=== PATIENT | female | born 1995 | race Caucasian/White ===

== ENCOUNTER 2022-07-21 22:31 | Emergency (ER) | payer BC, OTHER, SELFPAY ==
[2022-07-21 22:35] VITALS: BP 116/70; PULSE 86; RESP 18; TEMP 37; O2SAT 96; BMI 27.5
--- NOTE | 2022-07-21 23:50 | ED_ITS ---
HPI - General Chief complaint: Vaginal Bleeding Time Seen by Provider: 07/21/22 23:40 Source: patient Mode of arrival: walk-in Limitations: no limitations History of Present Illness HPI Narrative: [id number]. her daughter is 8 years old. Recent tubal 04/2022 required removal of her tube. She is now 5 weeks . States she started spotting yesterday with some cramping. No urinary symptoms or nausea or fever. MD Complaint: Reports vaginal bleeding Related Data Allergies Allergy/AdvReac Type Severity Reaction Status Date / Time No Known Drug Allergies Allergy Verified 07/21/22 22:45 Review of Systems ROS Status of ROS 10 or more systems reviewed and unremarkable except as noted in history and below Exam Constitutional Vital Signs - 24 hr 07/21/22 22:35 Temperature 98.6 F Pulse Rate [Monitor] 86 Respiratory Rate 18 Blood Pressure [Right Arm] 116/70 Pulse Oximetry 96 Oxygen Delivery Method Room Air HENMT Common normals: normocephalic and head/scalp atraumatic Eye Common normals: PERRL, EOMs intact bilaterally and conjunctivae normal Neck & C-Spine Common normals: full ROM and supple Chest Common normals: inspection of chest normal Respiratory Common normals: normal respiratory effort and clear to auscultation bilaterally Cardio Common normals: regular rate, regular rhythm, S1 normal heart sound and S2 normal heart sound GI Common normals: Normal to inspection, nondistended, normoactive bowel sounds present, soft to palpation and non-tender Common normals: external appearance normal, appearance of the vagina normal and appearance of the cervix normal Bimanual exam- vagina & uterus: cervical tenderness Bimanual exam- adnexa, other: adnexal tenderness Extremity Common normals: normal to inspection, full ROM and no joint enlargement Neuro Common normals: oriented x3, CN's II-XII intact bilaterally, moves all extremities and no focal motor deficits Psych Appearance: grossly normal Course Vital Signs Vital signs: Vital Signs Temperature 98.6 F 07/21/22 22:35 Pulse Rate 86 07/21/22 22:35 Respiratory Rate 18 07/21/22 22:35 Blood Pressure 116/70 07/21/22 22:35 Pulse Oximetry 96 07/21/22 22:35 Oxygen Delivery Method Room Air 07/21/22 22:35 Temperature 98.6 F 07/21/22 22:35 Pulse Rate 86 07/21/22 22:35 Respiratory Rate 18 07/21/22 22:35 Blood Pressure 116/70 07/21/22 22:35 Pulse Oximetry 96 07/21/22 22:35 Oxygen Delivery Method Room Air 07/21/22 22:35 MDM - OB/Uterine Contractions MDM Narrative Medical decision making narrative: B1L4Au3. Tubal earlier this year requiring tubal removal on the right. Now 5 weeks with spotting. Speculum exam without evidence of blood. Bimanual exam with left adnexa tenderness. Pelvic US with likely intrauterine gestational sac. pole and heart rate not yet identified likely too soon to be seen via ultrasound. Ill defined structure along the margin of the left ovary . Ectopic not completely excluded however felt unlikely given likely intrauterine gestational sac. Patient informed of this . Also informed of re commendation of close follow up with serial bHCG and pelvic US to be managed by her Customer Development Representative. discharged home in stable condition Discharge Plan Discharge Chief Complaint: Vaginal Bleeding Clinical Impression: Vaginal bleeding in Patient Disposition: Home, Self-Care Instructions: Threatened Miscarriage (ED) Additional Instructions: FOLLOW UP WITH DR ABUROT SOON DISCUSSED Stand Alone Forms: Portal Instructions Referrals: Physician,Non-Staff, MD [Primary Care Provider] - 1 week Follow Up Appointments: follow up with Dr Aburto soon as discussed
[2022-07-22] MEDS: 0.9 % SODIUM CHLORIDE 1,000 ML 999 ML IV (00:23)
[2022-07-22 00:24] LABS: Bilirubin Urine NEGATIVE (NEGATIVE); Blood Urine TRACE-I (NEGATIVE); Clarity Urine CLEAR (CLEAR); Color Urine LT. YELLOW (YELLOW); Glucose Urine UA NEGATIVE (NEGATIVE); Ketones Urine NEGATIVE (NEGATIVE); Leukocyte Esterase Urine NEGATIVE (NEGATIVE); Nitrite Urine NEGATIVE (NEGATIVE); Protein Urine NEGATIVE (NEG/TRACE); Specific Gravity Urine <=1.005 (1.005-1.025); Urobilinogen Urine 0.2 EU/dL (0.2-1.0)
[2022-07-22 00:25] LABS: Basophils Absolute Auto 0.1 10^3/uL (0.0-0.1); Basophils Percent Auto 0.4 % (0.2-2.0); Hematocrit 38.4 % (36.0-48.0); Hemoglobin 13.1 g/dL (12.0-16.0); Immature Granulocytes Abs Auto 0.06 10^3/uL (0.00-0.03); Immature Granulocytes Pct Auto 0.5 % (0.0-0.5); Lymphocytes Absolute Auto 0.8 10^3/uL (1.2-3.8); Lymphocytes Percent Auto 5.8 % (20.5-60.0); Mean Corpuscular HGB Conc 34.1 g/dL (29.9-35.2); Mean Corpuscular Hemoglobin 31.5 pg (26.7-34.0); Mean Corpuscular Volume 92.3 fL (81.0-99.0); Mean Platelet Volume 9.8 fL (9.5-13.5); Monocytes Absolute Auto 0.4 10^3/uL (0.3-0.8); Monocytes Percent Auto 2.6 % (1.7-12.0); Neutrophils Percent Auto 90.7 % (43.0-75.0); Platelet Count 303 10^3/uL (150-450); Red Blood Count 4.16 10^6/uL (4.20-5.40); Red Cell Distribution Width 11.8 % (11.0-15.0); White Blood Count 13.2 10^3/uL (4.0-11.0)
[2022-07-22 00:26] LABS: Bacteria Urine NONE SEEN #/HPF (NONE SEEN); Cast Seen? NONE SEEN #/LPF (NONE SEEN); Crystals Seen? None Seen #/HPF (None Seen); Mucus Urine NONE SEEN (NONE SEEN); RBC Urine 0-2 #/HPF (0-2); Squamous Epithelial Cell Urine NONE SEEN #/LPF (NONE/RARE); WBC Urine NONE SEEN #/HPF (NONE SEEN)
[2022-07-22 00:41] LABS: Alanine Aminotransferase 21 U/L (14-59); Albumin Globulin Ratio 1.3; Albumin Level 4.2 g/dL (3.4-5.0); Alkaline Phosphatase 54 U/L (46-116); Anion Gap 15.5; Aspartate Amino Transferase 13 U/L (15-37); BUN Creatinine Ratio 15.3; Bilirubin Total 0.5 mg/dL (0.2-1.0); Calcium 8.8 mg/dL (8.5-10.1); Carbon Dioxide 23.3 mmol/L (21.0-32.0); Chloride 103 mmol/L (98-107); Estimated GFR (African America >60 (>=60); Estimated GFR (Non-African Ame >60 (>=60); Globulin 3.2 g/dL; Glucose 115 mg/dL (74-106); Potassium 3.8 mmol/L (3.5-5.1); Sodium 138 mmol/L (136-145); Total Protein 7.4 g/dL (6.4-8.2)
[2022-07-22 01:00] LABS: HCG Quantitative 5050 mIU/mL
--- NOTE | 2022-07-22 01:14 | US_ITS ---
The [address] [address] Patient Name: SHAWNEE BLACKWELL MRN: [id number] date: 1995 Sex: F Assigned Patient Location: ER Current Patient Location: ER Accession/Order Number: [id number] Exam Date: 07/22/2022 01:57 Report Date: 07/22/2022 05:07 At the request of: SILVINA REDDING Procedure: US OB transvaginal US OB transvaginal: 07/22/2022 1:57 AM EDT CLINICAL HISTORY: 26 years old Female with ectopic. Estimated gestational age of 5 weeks and 3 days by LMP. Vaginal bleeding and cramping. TECHNIQUE: Multiple ultrasonographic and duplex images of the pelvis are obtained utilizing endovaginal probe. COMPARISON: None available. FINDINGS: Uterus: Uterus is normal in size measuring . Possible tiny intrauterine gestational sac with mild decidual with mean sac diameter of 1.6 cm compatible with 5 weeks 6 days gestational age. The cervix appears long and closed 3.6 cm. The endometrial stripe is upper limit of normal at 1.2 cm. No pole identified. Therefore no heart rate is seen. Ovaries and Adnexa: Right: The right ovary measures 2.5 x 1.2 x 2.4 cm with volume of 4.1 mL and demonstrates normal follicular change and color flow. Left: The left ovary measures 3.3 x 3.1 x 2.4 cm with volume of 2.4 mL and demonstrates normal follicular change and color flow. Corpus luteal cyst cyst measures 1.7 x 1.8 x 2.0 cm. Somewhat tubular elongation along the margin of the ovary best seen on cine clip measured on still images at 2.0 cm does appear contiguous with the ovary possible lobular contour of the ovary or adjacent fallopian tube. Free fluid: Trace free fluid is seen adjacent to the right ovary. IMPRESSION: 1. Likely intrauterine gestational sac with apparent decidual reaction is present with estimated gestational age of 5 weeks and 6 days by mean sac diameter. pole and heart rate are not yet identified likely too soon to be seen sonographically. 2. Ill-defined structure along the margin of the left ovary does appear contiguous with the ovary on cine clip imaging possible lobular contour of the ovary or adjacent tube with ectopic not completely excluded however felt unlikely given likely intrauterine gestational sac. 3. Left corpus luteal cyst measures 2.0 cm. Recommendation: Close clinical follow-up is recommended. Follow-up with serial beta-hCG and repeat pelvic ultrasound may be indicated. Electronically authenticated by: CATHLEEN MORELOS Date: 07/22/2022 05:07
[2022-07-23 22:08] LABS: Neisseria gonorrhoeae, NAA Negative (Negative)
== END 2022-07-22 05:35 | disposition home or self-care (01) ==
PROVIDERS: Emergency Provider Internal Medicine
DX: O46.91 Antepartum hemorrhage, unspecified, first trimester (principal); Z3A.01 Less than 8 weeks gestation of pregnancy; Z90.79 Acquired absence of other genital organ(s)
CPT/HCPCS: 36415; 76817; 80053; 81001; 84702; 85025; 87070; 87150; 87491; 87591; 99284

== ENCOUNTER 2022-08-08 12:21 | Outpatient (OUT) | payer BC, OTHER, SELFPAY ==
--- NOTE | 2022-08-08 12:22 | US_ITS ---
The [address] [address] Patient Name: SHAWNEE BLACKWELL MRN: [id number] date: 1995 Sex: F Assigned Patient Location: US Current Patient Location: US Accession/Order Number: [id number] Exam Date: 08/08/2022 12:30 Report Date: 08/08/2022 16:11 At the request of: ALEX FOWLER Procedure: US OB transvaginal EXAMINATION: US OB transvaginal HISTORY: MISSED PERIOD COMPARISON: No relevant comparison available. FINDINGS: GESTATIONAL SAC: Present. YOLK SAC: Present. POLE: Present CARDIAC: Present. UTERUS: Normal size and appearance. OVARIES: Right: Normal. Left: Corpus lutein cyst. CERVIX: 3.4 cm in length and closed. CUL-DE-SAC: Normal. OTHER: None. AGE BY LMP: 7 weeks 6 days SWAPNA BY LMP: 03/21/2023 AGE BY US CRL: 7 weeks 2 days SWAPNA BY US CRL: 03/25/2023 IMPRESSION: 1. Single live intrauterine . Follow-up recommended. Electronically authenticated by: JORGE BOB Date: 08/08/2022 16:11
== END 2022-08-08 12:22 | disposition home or self-care (01) ==
LOC: US 12:21
PROVIDERS: Visit Provider Obstetrics & Gynecology
DX: Z34.91 Encounter for supervision of normal pregnancy, unspecified, first trimester (principal); Z3A.01 Less than 8 weeks gestation of pregnancy
CPT/HCPCS: 76817

== ENCOUNTER 2022-08-24 11:50 | Outpatient (OUT) | payer BC, OTHER, SELFPAY ==
[2022-08-24 12:30] LABS: Basophils Absolute Auto 0.1 10^3/uL (0.0-0.1); Basophils Percent Auto 0.6 % (0.2-2.0); Eosinophils Absolute Auto 0.3 10^3/uL (0.0-0.7); Eosinophils Percent Auto 3.2 % (0.9-7.0); Hematocrit 39.6 % (36.0-48.0); Hemoglobin 13.8 g/dL (12.0-16.0); Immature Granulocytes Abs Auto 0.04 10^3/uL (0.00-0.03); Immature Granulocytes Pct Auto 0.4 % (0.0-0.5); Lymphocytes Absolute Auto 2.1 10^3/uL (1.2-3.8); Lymphocytes Percent Auto 22.3 % (20.5-60.0); Mean Corpuscular HGB Conc 34.8 g/dL (29.9-35.2); Mean Corpuscular Hemoglobin 31.9 pg (26.7-34.0); Mean Corpuscular Volume 91.5 fL (81.0-99.0); Mean Platelet Volume 9.7 fL (9.5-13.5); Monocytes Percent Auto 10.8 % (1.7-12.0); Neutrophils Absolute Auto 5.8 10^3/uL (1.4-6.5); Neutrophils Percent Auto 62.7 % (43.0-75.0); Platelet Count 273 10^3/uL (150-450); Red Blood Count 4.33 10^6/uL (4.20-5.40); Red Cell Distribution Width 11.7 % (11.0-15.0); White Blood Count 9.3 10^3/uL (4.0-11.0)
[2022-08-24 13:27] LABS: Estimated Average Glucose 91 mg/dL; Glycohemoglobin A1C 4.8 % (4.5-6.2)
[2022-08-24 13:37] LABS: Thyroid Stimulating Hormone 3.612 uIU/mL (0.358-3.740)
[2022-08-25 07:13] LABS: Rubella Antibodies, IgG 3.16 index (Immune >0.99)
[2022-08-25 08:13] LABS: HBsAg Screen Negative (Negative); HIV Ab/p24 Ag Screen Non Reactive (Non Reactive)
[2022-08-25 09:12] LABS: HCV Ab Non Reactive (Non Reactive)
[2022-08-25 10:08] LABS: Rapid Plasma Reagin, Quant Non Reactive (NonRea<1:1)
== END 2022-08-24 11:51 | disposition home or self-care (01) ==
PROVIDERS: Visit Provider Obstetrics & Gynecology
DX: Z34.81 Encounter for supervision of other normal pregnancy, first trimester (principal)
CPT/HCPCS: 36415; 83036; 84443; 85025; 86592; 86706; 86762; 86803; 86850; 86900; 86901; 87086; 87389

== ENCOUNTER 2025-01-07 07:04 | Emergency (ER) | payer OTHER, SELFPAY ==
--- OUTSIDE RECORDS SUMMARY | 2023-10-14 10:00 | XMS_ITS ---
Author Organization [facility] vices Address [address] [place], [place] [address], [place] [phone] Care Team Providers Care Truck Rental Manager Name Role Phone Yarelis Chilel Unavailable [phone] Thierry Tucker Unavailable [phone] REASON FOR VISIT Rest #30-OB, #31-OB Medications Medication SIG (Take, Route, Frequency, Duration) Notes Start Date End Date Status SEROquel 100 MG Tablet 1 tablet at bedtime Orall y Once a day Not-Taking/PRNtraZODone HCl 100 MG Tablet1 tablet at bedtime Orally Once a day Not-Taking/PRNCeleXA 20 MG Tablet1 tablet Orally Once a dayActiveStrattera 60 MG Capsule1 capsule in the morning Orally Once a dayNot-Taking/PRNAzithromycin 500 MG Tablet1 tablet Orally; Duration: 10 day(s)01/23/2023Not-Taking/PRN Social History Sex Assigned At : Social History Observation Description Sex Assigned At Female Encounters Encounter Location Date Provider Diagnosis [facility] [address] [place] [phone] 2023 Thierry Tucker Plan Of Treatment No Information Progress Notes * Abril BLACKWELLDOB:1995 (29 yo F)Acc No.[id number]:[id number] Patient:?Abril Blackwell :?Thierry Tucker DDSDOB:1995???Age:27 Y ???Sex:FemaleDate:4Phone:[phone]:[address] [place] [phone] Subjective: * Chief Complaints: * R est #30-OB, #31-OB * Medications: T akingCeleXA 20 MG Tablet 1 tablet Orally Once a day Taking CeleXA 20 MG Tablet 1 tablet Orally Once a day Not-Taking/PRNtraZODone HCl 100 MG Tablet 1 tablet at bedtime Orally Once a day SEROquel 100 MG Tablet 1 tablet at bedtime Orally Once a day Strattera 60 MG Capsule 1 capsule in the morning Orally Once a day Azithromycin 500 MG Tablet 1 tablet Orally Not-Taking/PRN traZODone HCl 100 MG Tablet 1 tablet at bedtime Orally Once a day Not-Taking/PRN SEROquel 100 MG Tablet 1 tablet at bedtime Orally Once a day Not-Taking/PRN Strattera 60 MG Capsule 1 capsule in the morning Orally Once a day Not-Taking/PRN Azithromycin 500 MG Tablet 1 tablet Orally Billing Information: * Procedure Codes: * Electronic signature of Thierry Tucker DDS on 01/07/2025 at 08:25 AM ESTSign off status: Pending * Provider: Ana Tucker DDS Date: 0 2023 Generated for Printing/Faxing/eTransmitting on:?01/07/2025 08:25 AM EST
--- OUTSIDE RECORDS SUMMARY | 2024-06-17 11:00 | XMS_ITS ---
Author Organization [facility] vices Address [address] [place] [phone] Care Team Providers Care Career Development Facilitator Name Role Phone Yarelis Chilel Unavailable [phone] REASON FOR VISIT Rest #18 Social History Sex Assigned At : Social History Observation Description Sex Assigned At Female Encounters Encounter Location Date Provider Diagnosis [facility] [place] [address] [place] [phone] 06/17/2024 Yarelis Chilel Plan Of Treatment No Information Progress Notes * Abril BLACKWELLDOB:1995 (29 yo F)Acc No.[id number]:06/17/2024 Patient:?Abril Blackwell :?Yarelis Chilel DDSDOB:1995???Age:28 Y ???Sex:FemaleDate:06/17/2024Phone:[phone]:[address] [place], [place] [phone] Subjective: * Chief Complaints: * R est #18 Billing Information: * Procedure Codes: * Electronic signature of Yarelis Chilel DDS on 01/07/2025 at 08:25 AM EST Sign off status: Pending * Provider: Jose Chilel DDS Date: 0 06/17/2024 Generated for Printing/Faxing/eTransmitting on:?01/07/2025 08:25 AM EST
--- OUTSIDE RECORDS SUMMARY | 2024-09-30 04:00 | XMS_ITS ---
Author Organization [facility] vices Address [address] [place] [phone] Care Team Providers Care Engine Designer Name Role Phone Yarelis Chilel Unavailable [phone] Shannon Stanley Unavailable [phone] REASON FOR VISIT Rest #18-O Social History Sex Assigned At : Social History Observation Description Sex Assigned At Female Encounters Encounter Location Date Provider Diagnosis [facility] [address] [place] [phone] 09/30/2024 Shannon Stanley Plan Of Treatment No Information Progress Notes * Abril BLACKWELLDOB:1995 (29 yo F)Acc No.[id number]:09/30/2024 Patient:?Abril Blackwell :?Shannon Stanley DMDDOB:1995???Age:28 Y ???Sex:FemaleDate:09/30/2024Phone:[phone]:[address] [place], [place] [phone] Subjective: * Chief Complaints: * R est #18-O Billing Information: * Procedure Codes: * Electronic signature of Shannon Stanley DMD on 01/07/2025 at 08:25 AM ESTSign off status: Pending * Provider: Juwan Stanley DMD Date: 0 09/30/2024 Generated for Printing/Faxing/eTransmitting on:?01/07/2025 08:25 AM EST
[2025-01-07 07:10] VITALS: BP 103/66; PULSE 92; TEMP 36.8; O2SAT 93; BMI 26.6
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
--- OUTSIDE RECORDS SUMMARY | 2025-01-07 08:25 | XMS_ITS | Patient Health Record ---
Author Organization [facility] vices Address [address] [place], [place] [phone] Care Team Providers Care Community Mental Health Social Worker Name Role Phone Yarelis Chilel Unavailable [phone] Shannon Stanley Unavailable [phone] Allergies No Known Allergies Reason For Referral No Information Medications Medication SIG (Take, Route, Frequency, Duration) Notes Start Date End Date Status traZODone HCl 100 MG Tablet 1 tablet at bedtime Orally Once a day Not-Taking/PRNSEROquel 100 MG Tablet1 tablet at bedtime Orally Once a day Not-Taking/PRNCeleXA 20 MG Tablet1 tablet Orally Once a dayActivebuPROPion HCl ER (XL) 150 MG Tablet Extended Release 24 HourOral; Duration: 30 DaysActive Strattera 60 MG Capsule1 capsule in the morning Orally Once a dayNot-Taking/PRN Azithromycin 500 MG Tablet1 tablet Orally; Duration: 10 day(s)01/23/2023 Not-Taking/PRN Social History Sex Assigned At : Social History Observation Description Sex Assigned At Female Social History Tobacco Use:Social InfoQuestionAnswerNotesTobacco Control (Standard)Additional Findings: Tobacco usere-cigarette Problems Problem Type SNOMED Code ICD Code Onset Dates Problem Status W/U Status Risk Notes Problem Body mass index 30.0 0 to 34.99 ([id number]) BMI 31.0-31.9,adult (Z68.31) Activeconfirmed Vital Signs Heart Rate 86 /min 03/22/2024 Blood pressure knzzvtuyd63 mm Hg03/22/2024Height-cm160.02 cm03/22/2024Weight-kg 81.65 kg03/22/20241429Pmepnk9'3 in03/22/2024lood pressure iotzhalk203 mm Hg 02/03/5763Tlduqk342 lbs5BMI31.88 kg/m203/22/2024 Encounters Encounter Location Date Provider Diagnosis [facility] [address] [place], [place] [phone] 03/17/2024 Yarelis Chilel BMI 31.0-31.9,adult Z68.31 ; Encounter for screening for dental disorders Z13.84 ; 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 ; Dental anabaptism status Z98.811 ; Encounter for dental examination and cleaning with abnormal findings Z01.21 and Dental caries into dentine K02.62 [facility] [address] [place], [place] [phone] 03/22/2024 Yarelis Chilel Dental caries into dentine K02.62 Assessments Encounter Date Diagnosis (ICD Code) Assessment Notes Treatment Notes Treatment Clinical Notes Section Notes 03/17/2024 BMI 31.0-31.9,adult (ICD-10 - Z6 8.31) 03/22/2024Dental caries into dentine (ICD-10 - K02.62)03/17/2024Encounter for screening for dental disorders (ICD-10 - Z13.84)03/17/2024Irreversible pulpitis (ICD-10 - K04.02)03/17/2024Dental anabaptism status (ICD-10 - Z98.811) 03/17/2024Encounter for dental examination and cleaning with abnormal findings (ICD-10 - Z01.21)03/17/2024Dental caries into dentine (ICD-10 - K02.62) Plan Of Treatment No Information Insurance Providers Payer Name Payer Address Payer Phone Subscriber Number Group Number Insured Name Patient Relationship to Insured Coverage Start Date Coverage End Date Jose Eduardo Liriano [facility] [place] [address] [place] [address] [id number] Abril Smith Self - patient is the insured 0 DMedicaid C[employer] after [address] [place], [place] [id number] Abril SmithSelf - patient is the [id number] 2022
--- OUTSIDE RECORDS SUMMARY | 2025-01-07 08:25 | XMS_ITS | Clinical Summary ---
Author Organization [facility] Address [address] [place] [address] Care Team Providers Care Gas Main Fitter Name Role Phone No, Physician Primary Care Provider Unavailabl e Allergies No known active allergies Social History Tobacco UseTypesPacks/DayYears UsedDateSmoking Tobacco: Every DayCigarettes Passive Smoke Exposure: NeverSmokeless Tobacco: Never Tobacco Cessation:Ready to Q uit: Not Asked; Counseling Given: Not Answered Alcohol UseStandard Drinks/WeekCommentsNot Currently0 (1 standard drink = 0.6 oz pure alcohol)in rehabCommentsUnknownSex and Gender InformationValueDate RecordedSex Assigned at BirthNot on fileLegal NetQkleev58/09/2023 11:15 PM EDT Gender IdentityNot on fileSexual OrientationNot on file Last Filed Vital Signs Vital SignReadingTime TakenCommentsBlood Inisivij979/68007/27/2022 2:51 AM EDT Pymae8395/10/2023 2:51 AM IPVBxhhebianvp04.7 ??C (98 ??F)07/26/2022 11:18 PM EDT Respiratory Tbod4581 2:51 AM EDTOxygen Scspeoonrw767%07/27/2022 2:51 AM EDTInhaled Oxygen Concentration--Sgdztv03.4 kg (155 lb 3.3 oz)07/26/2022 11:18 PM UCAXwvzbu034 cm (5' 3 )07/26/2022 11:18 PM EDTBody Mass Index27.49007/26/2022 11:18 PM EDT Plan of Treatment Health MaintenanceDue DateLast DoneCommentsVaricella Vaccines (2 of 2 - 2-dose childhood series)Depression Screening/Follow-Up (PHQ-2/9) 2008HIV Gipabbevo59/28/2012Hepatitis C Riiyeyqtl91/28/2015Pneumococcal Vaccine (1 of 2 - PCV), 04/18/1997, 02/07/1997, Additional history existsPap Smear2017Wellness Visit/08/2021HPV Vaccines (1 - 3-dose SCDM series)10/15/2023OVID-19 Vaccine (3 - season) /, 06/21/2020Influenza Vaccine (#1)/08/2014, 04/06/2013, 03/01/2010, Additional history existsTetanus/Diphtheria/Pertussis (7 - Td or Tdap), 02/20/2010, 01/17/1998, Additional history existsZoster Vaccines (1 of 2)2046RSV Vaccines (1 - 1-dose 75+ series) 10/15/2071Hepatitis B McltvzomSaxtqptgq21/02/1998, 1996, 1996IPV AoocquktCtaxyfflq17/07/2002, 10/19/1997, 10/19/1997, Additional history exists MMR AjuvdokoNcpvafiwj11/13/2008, 06/23/2001, 10/19/1997Meningococcal ACWY VaccineAged Out02/20/2010No longer eligible based on patient's age to complete this topicHIB VaccinesAged OutNo longer eligible based on patient's age to complete this topicHepatitis A VaccinesAged OutNo longer eligible based on patient's age to complete this topicMeningococcal B VaccineAged OutNo longer eligible based on patient's age to complete this topicRotavirus VaccinesAged Out No longer eligible based on patient's age to complete this topic Insurance Care Teams Team MemberRelationshipSpecialtyStart DateEnd Date No, [facility] PCP - [facility]07/27/22
--- OUTSIDE RECORDS SUMMARY | 2025-01-07 08:26 | XMS_ITS | Clinical Summary ---
Author Organization [facility] Address [address] [place] [address] Care Team Providers Care Property Damage Claims Adjustor Name Role Phone Unallocated, [facility] Provider Primary Care Provi radha Allergies Active AllergyReactionsCriticalityNoted DateCommentsAmoxicillinSwelling 11/08/2022 Medications MedicationSigDispense QuantityRefillsLast FilledStart DateEnd DateStatus acetaminophen (Tylenol 8 Hour) 650 MG ER tablet Take 650 mg by mouth every 8 (eight) hours if needed for mild pain. Do not crush, chew, or split.Active lamoTRIgine (LaMICtal) 25 MG tablet 08/05/2022ctive pimecrolimus (Elidel) 1 % cream 10/04/2022ctive citalopram (CeleXA) 10 MG tablet Indications:First trimester ([facility])Take 1 tablet (10 mg) by mouth in the morning. 30 tablet 1109ctive buPROPion XL (Wellbutrin XL) 150 MG 24 hr tablet Indications:Mood changesTake 1 tablet (150 mg) by mouth in the morning. Do not crush, chew, or split.. 30 tablet ctive albuterol HFA (Ventolin HFA) 90 mcg/act inhaler Indications:BronchitisInhale 2 puffs every 6 (six) hours if needed for wheezing or shortness of breath 8 g 11/26/2023ctive clobetasol (Temovate) 0.05 % ointment Indications:Dyshidrotic eczemaApply topically 2 (two) times a day Apply to affected areas 60 g 01/27/2024ctive clindamycin (Cleocin) 300 MG capsule Indications:Dental abscessTake 1 capsule (300 mg) by mouth in the morning and 1 capsule (300 mg) before bedtime. 14 capsule 4Active methylPREDNISolone (Medrol Dospak) 4 MG tablets Indications:Acute dermatitisFollow schedule on package instructions 21 tablet 5Active Active Problems No known active problems Family History Medical HistoryRelationNameCommentsNo Known ProblemsDaughterNo Known Problems FatherNo Known ProblemsMotherLung cancerMother's SisterNo Known ProblemsSister RelationNameStatusCommentsDaughterAliveFatherAliveMotherAliveMother's Sister SisterAlive Social History Tobacco UseTypesPacks/DayYears UsedDateSmoking Tobacco: NeverSmokeless Tobacco: Never Tobacco Cessation:Counseling Given: Not Answered Alcohol UseStandard Drinks/WeekCommentsNot Asked0 (1 standard drink = 0.6 oz pure alcohol)CommentsUnknownSex and Gender InformationValueDate Recorded Sex Assigned at GbsrmEkiolp31/12/2023 10:32 AM EDTLegal GcoSyntny10/15/2023 7:04 PM EDTGender IdentityNot on fileSexual OrientationNot on file Last Filed Vital Signs Vital SignReadingTime TakenCommentsBlood Fpbisxyz388/8406/04/2024 6:41 PM EDT Twhwf9123/03/2025 6:41 PM UKYSpjiweveyrd16.3 ??C (97.4 ??F)07/20/2024 6:41 PM EDTRespiratory Rate--Oxygen Srgdcklsis11%07/20/2024 6:41 PM EDTInhaled Oxygen Concentration--Wnezqu17 kg (147 lb 12.8 oz)07/20/2024 6:41 PM HRLGnofjw819 cm (5' 3 )11/26/2023 1:40 PM EDTBody Mass Index26.181 1:40 PM EDT Plan of Treatment Health MaintenanceDue DateLast DoneCommentsPneumococcal Vaccine: Pediatrics (0 to 5 Years) and At-Risk Patients (6 to 64 Years) (1 of 2 - PCV)10/15/2015COVID- 19 Vaccine (3 - Pfizer risk series)/, 06/21/2020Influenza Vaccine (#1)508/04/2023, 10/24/2014, 04/06/2013, Additional history exists Insurance Care Teams Team MemberRelationshipSpecialtyStart DateEnd Date Unallocated, [facility] Z[facility], [address] [place], [place] [id number] PCP - GeneralFamily Medicine03/04/23
--- OUTSIDE RECORDS SUMMARY | 2025-01-07 08:26 | XMS_ITS | Patient Health Record ---
Author Organization [facility] Address [address] [place] [address] Care Team Providers Care Freight Solicitor Name Role Phone [facility], [facility] Prov ider Unavailable Allergies No Known Allergies Reason For Referral No Information Medications Medication SIG (Take, Route, Frequency, Duration) Notes Start Date End Date Status Wellbutrin XL ActiveTriamcinolone Acetonide 0.1 %1 application Externally Twice a Day as needed; Duration: 5 daysActiveVivitrol 380 MGas directed IntramuscularActive CeleXAActive Social History Tobacco Use: Social History Observation Description Date Details (start date - stop date) Unknown Tobacco Use Question Answer Notes Are you a Uses tobacco in other forms Additional Findings: Tobacco Usere-CigaretteTobacco Control (Standard) Question Answer Notes Tobacco use: Uses tobacco in other forms Additional Findings: Tobacco usere-cigarette Problems Problem Type SNOMED Code ICD Code Onset Dates Problem Status W/U Status Risk Notes Problem Anxiety (99309147) Anxiety (F41.9) ActiveconfirmedProblemDepression (241809507)Depression (F32.9)Activeconfirmed ProblemNondependent alcohol abuse in remission (408630942)History of alcohol abuse (F10.11)ActiveconfirmedProblemObese class I (finding) (377291743245405) Obesity (BMI 30.0-34.9) (E66.9)ActiveconfirmedProblemTobacco user (276269841) Other tobacco product nicotine dependence, uncomplicated (F17.290)Active confirmed Plan Of Treatment No Information Insurance Providers Payer Name Payer Address Payer Phone Subscriber Number Group Number Insured Name Patient Relationship to Insured Coverage Start Date Coverage End Date [employer] [place] [employer] [address] [address] [place] [address] [id number] Ayad Smith - patient is the insured Medical (General) History Medical History History ICD Code Anxiety F41.9 Depression F32.9 History of alcohol abuse F10.11 Surgical History Surgery Date(Month/Year) ectopic 02/2022 Hospitalization History Reason Date(Month/Year) surgeries
== END 2025-01-07 08:44 | disposition home or self-care (01) ==
PROVIDERS: Emergency Provider Emergency Medicine
DX: S20.219A Contusion of unspecified front wall of thorax, initial encounter (principal); S80.01XA Contusion of right knee, initial encounter; V44.5XXA Car driver injured in collision with heavy transport vehicle or bus in traffic accident, initial encounter
CPT/HCPCS: 71045; 73562; 99284